=== PATIENT | male | born 1955 | race Caucasian/White ===

== ENCOUNTER 2021-06-13 09:22 | Outpatient (CLI) | payer MEDICAID, SELFPAY ==
[~2021-06-13] VITALS: Ht 170.2 cm; Wt 99.3 kg
[2021-06-17 11:23] VITALS: BP_SYST 130
== END 2021-06-17 10:00 | disposition home or self-care (01) ==
LOC: SLB 09:22 → SDS 06-17 09:22 → SMU 06-17 09:24 → SLB 06-17 10:00 → SMU 06-17 11:15 → SDS 06-17 11:15 → EDSTATUS 06-17 11:30
PROVIDERS: ATTEND Surgery
DX: Z01.818 Encounter for other preprocedural examination (principal); K43.9 Ventral hernia without obstruction or gangrene; Z79.84 Long term (current) use of oral hypoglycemic drugs; I48.91 Unspecified atrial fibrillation; Z79.01 Long term (current) use of anticoagulants; I50.9 Heart failure, unspecified; E11.8 Type 2 diabetes mellitus with unspecified complications; K21.9 Gastro-esophageal reflux disease without esophagitis; G47.30 Sleep apnea, unspecified; Z95.0 Presence of cardiac pacemaker; Z20.822 Contact with and (suspected) exposure to COVID-19
CPT/HCPCS: 36415; 82962; 87426; U0003